=== PATIENT | female | born 1960 | race Caucasian/White ===

== ENCOUNTER → 2016-10-19 | Outpatient (CLI) | payer BC | LOC: MAMO 08:55 | DX: Z12.31 Encounter for screening mammogram for malignant neoplasm of breast (principal) | CPT/HCPCS: 36415; 76641-LT; 84432; 84443; 86800; G0206 ==

== ENCOUNTER → 2020-09-02 | Outpatient (CLI) | payer OTHER | LOC: EXRD 13:15 | DX: L40.50 Arthropathic psoriasis, unspecified (principal); M19.072 Primary osteoarthritis, left ankle and foot; M19.049 Primary osteoarthritis, unspecified hand | CPT/HCPCS: 73130; 73630 ==